=== PATIENT | male | born 1945 | race Caucasian/White ===

== ENCOUNTER 2018-05-04 06:13 | Inpatient (IN) ==
--- NOTE | 2018-05-03 16:38 | Anesthesia Evaluation PreOp ---
Date of Encounter: 05/04/18 Time of Encounter: 07:08 - Past History Planned Operation: left femoral to anterior tibial BPG Cardiac History: HTN, Hyperlipidemia, Cardiac Stent (5-18 to RCA), Other (CAD and PAD) Pulmonary History: Former smoker (quit 1982) [employer] TRA[employer] CONSULTANT History: Denies Any Significant HX Other Medical History: Diabetes Type II Anesthesia History: No Prior Anesthetic Complications, Past Anesthesia (ACDF C5- 6, charles, appy, back sx, angioplasty to LLE) Alcohol Use: none Drug use: none Medications and Allergies hydroCHLOROthiazide [Hydrochlorothiazide] 25 mg PO DAILY 01/23/16 [History] Atenolol [Tenormin] 50 mg PO DAILY 03/19/18 [History] Clopidogrel [Plavix] 75 mg PO DAILY 03/19/18 [History] Insulin Degludec [Tresiba Flextouch U-200] 110 unit SQ HS 03/19/18 [History] Atorvastatin Calcium [Lipitor] 20 mg PO DAILY 03/31/18 [History] Aspirin 325 mg PO DAILY 05/04/18 [History] Losartan Potassium [Cozaar] 100 mg PO DAILY 05/04/18 [History] 3 Allergy/AdvReac Type Severity Reaction Status Date / Time No Known Allergies Allergy Verified 05/04/18 06:59 - Meds/Allergy Pre-op Review Medications Reviewed: Yes Allergies Reviewed: Yes Beta Blockers on Current Med List: Yes If Beta Blockers taken, Date/Time (Last Dose taken): 6-25 AT 1000. Anesthesia Results - Labs Laboratory Tests 04/30/18 04/30/18 13:48 13:48 Hgb 13.8 Plt Count 198 Sodium 138 Potassium 4.6 BUN 25 H Creatinine 1.46 H - Imaging EKG: report reviewed (SINUS BRADYCARDIA) Additional studies: cath: mpressions: There is severe diabetic small vessel coronary disease The left ventricle is normal and has normal contractility EF 65% Severe RCA stenosis corresponding to abnormal stress test and Patient had successful PTCA/Drug-Eluting Stent placement in the mid RCA. stress test: Impression: Pharmacologic stress ECG is negative for ischemia at level of heart rate achieved. Gated EF = 62%. Small sized, mild intensity, reversible basal inferior perfusion defect possibly due to ischemia. Anesthesia Exam Selected Entries 05/04/18 06:36 Temperature 97.8 F Pulse Rate 51 Respiratory Rate 18 Blood Pressure 170/63 O2 Sat by Pulse Oximetry 99 Height: 1.7m Weight: 81kg NPO (# of Hours): 8 - HEENT Pupil (Motor): EOMI Mallampati: II Teeth: Poor dentition Oral Opening: Greater than 3 - [employer] TRAFF[employer] CONSULTANT LOC: Oriented [employer] TRA[employer] CONSULTANT Motor: Normal RUE, Normal LUE, Normal RLE, Normal LLE, Normal Face [employer] TRA[employer] CONSULTANT Sensory: Normal: RUE, LUE, RLE, LLE, Face - Cardiac Rhythm: Regular Murmur: None - Pulmonary Breath Sounds: bilateral Clear Respiratory Effort: Symmetrical Anesthesia Assess/Plan ASA Score: 4 Modified Pratt Scale for Level of Consciousness: Cooperative, oriented, and tranquil Anesthetic Plan: General Monitoring Plan: Standard Monitors, A-Line, CVC Recovery Plan: PACU (agrees to GA, a-line and CVC as well as blood products. Will hold beta blockers this morning due to bradycardia)
[2018-05-04] MEDS ORDERED: CeFAZolin Syr 2,000MG/20 ML 2,000 MG/20 ML SYRINGE IVPB ONE (06:59)
[2018-05-04] MEDS ORDERED: Heparin 1,000 UNITS/500 mL 500 ML ONE (07:05)
[2018-05-04] MEDS ORDERED: Lidocaine -MPF 4% 5 ML AMPUL ONE (07:07)
[2018-05-04] MEDS ORDERED: *HR* Rocuronium Bromide 50 MG/5 ML VIAL ONE ×4 (07:13→13:44)
[2018-05-04] MEDS ORDERED: *HR* Phenylephrine 10 MG/ML VIAL ONE ×3 (07:13→13:42)
[2018-05-04] MEDS ORDERED: Dexamethasone 4 MG/ML VIAL ONE (07:13)
[2018-05-04] MEDS ORDERED: Lidocaine -MPF 2% 2 ML VIAL ONE ×2 (07:13→07:24)
[2018-05-04] MEDS ORDERED: Ondansetron 4 MG/2 ML VIAL ONE (07:13)
[2018-05-04] MEDS ORDERED: *HR* Propofol 200 MG/20 ML VIAL IVP ONE (07:19)
[2018-05-04] MEDS ORDERED: Heparin 1,000 UNITS/500 mL 1,500 ML ONE (07:19)
[2018-05-04] MEDS ORDERED: *HR* FentaNYL (PF) 100 MCG/2 ML VIAL ONE ×2 (07:30→15:26)
[2018-05-04] MEDS ORDERED: *HR* Succinylcholine 200 MG/10 ML VIAL IVP ONE (07:31)
[2018-05-04] MEDS: Ringers Solution, Lactated 1,000 ML IVC SCH ×2 (07:46→11:45)
--- NOTE | 2018-05-04 07:46 | History & Physical Report ---
Date of Encounter: 05/04/18 Time of Encounter: 07:25 24 Hour HP Update - Instructions Instructions: If the History and Physical is less than 30 days old and was completed prior to A.M. admission and or procedure and has NOT been updated on calendar day of procedure please complete this update prior to performing procedure. - Update Patient reports changes in Medical Condition: No Changes in examination, assessment, or condition: No Changes in Medication: No Preop tests/diagnostics Reviewed: Yes Surgery Remains Indicated: Yes Consent for Planned Operative Procedure(s) Verified: Yes - Pre-Operative Checklist Preoperative Checklist Indicated: Yes Prophylactic Antibiotic Ordered: Yes Home Medications Include Beta Ema: Yes Beta Ema Taken Today (Day of Surgery): Yes Beta Ema Taken Yesterday (Day Prior to Surgery): Yes Is VTE Prophylaxis Indicated?: Yes
[2018-05-04] MEDS ORDERED: ceFAZolin 1,000 MG, Sodium Chloride IRRigation 1,000 ML IR ONE (08:00)
[2018-05-04] MEDS ORDERED: *HR* Midazolam HCl 2 MG/2 ML VIAL ONE (08:07)
[2018-05-04] MEDS ORDERED: Acetaminophen IV 1,000 MG/100 ML INFUS..BTL ONE (08:16)
[2018-05-04 09:29] LABS: ABG Base Excess 1 mEq/L (-2 to 3); ABG Chloride 106 mEq/L (98-107); ABG Glucose 73 mg/dL (60-95); ABG HCO3 25 mEq/L (21-27); ABG Ionized Calcium 1.16 mmol/L (1.15-1.35); ABG Oxygen Saturation 100 % (95-98); ABG PCO2 38 mmHg (35-45); ABG PH 7.43 pH Units (7.32-7.45); ABG PO2 304 mmHg (85-104); ABG TCO2 26 mEq/L (20-26)
[2018-05-04] MEDS ORDERED: *HR* Heparin 5,000 UNIT/ML VIAL ONE ×2 (09:31→11:42)
[2018-05-04 11:06] LABS: ABG Base Excess 1 mEq/L (-2 to 3); ABG Chloride 108 mEq/L (98-107); ABG Glucose 92 mg/dL (60-95); ABG HCO3 25 mEq/L (21-27); ABG Ionized Calcium 1.15 mmol/L (1.15-1.35); ABG Oxygen Saturation 100 % (95-98); ABG PCO2 40 mmHg (35-45); ABG PH 7.41 pH Units (7.32-7.45); ABG PO2 305 mmHg (85-104); ABG TCO2 27 mEq/L (20-26)
[2018-05-04] MEDS ORDERED: Neostigmine Methylsulfate 3 MG/3 ML SYRINGE ONE (12:36)
[2018-05-04] MEDS ORDERED: Albumin Human 5% 25.0 GM/500 ML VIAL ONE ×2 (13:15→13:47)
[2018-05-04 13:18] LABS: ABG Base Excess -1 mEq/L (-2 to 3); ABG Chloride 105 mEq/L (98-107); ABG Glucose 112 mg/dL (60-95); ABG HCO3 23 mEq/L (21-27); ABG Ionized Calcium 1.18 mmol/L (1.15-1.35); ABG Oxygen Saturation 100 % (95-98); ABG PCO2 34 mmHg (35-45); ABG PH 7.44 pH Units (7.32-7.45); ABG PO2 233 mmHg (85-104); ABG TCO2 24 mEq/L (20-26)
[2018-05-04] MEDS ORDERED: MORPHINE SUL Oral CONC 10 MG/0.5 ML ORAL.SYG SL PRN (13:23)
[2018-05-04] MEDS ORDERED: Ondansetron 4 MG/2 ML VIAL IVP ONE (13:23)
[2018-05-04] MEDS ORDERED: EPHEDrine 50 MG/ML VIAL ONE (13:28)
[2018-05-04] MEDS ORDERED: *HR* PHENYLEPHRINE 1,000 MCG/10 ML SYRINGE IVP ONE (13:34)
[2018-05-04] MEDS ORDERED: *HR* Vasopressin 20 UNIT/ML VIAL ONE (13:36)
--- NOTE | 2018-05-04 13:51 | Anesthesia Procedures ---
Date of Encounter: 05/04/18 Time of Encounter: 08:15 Procedures: Anesthesia - Arterial Line Consent obtained: written consent Time out performed: Yes Size (Gauge): 20 Length (inches): 1 3/4 Technique Used: sterile prep, guide wire technique, direct puncture technique Post-Procedure: line taped into place, dry sterile dressing placed Patient tolerated procedure: well, no complications Complications: none Site: Radial L (placed by Ruperto Nickerson CRNA) - Central Line Placement Right IJ Consent obtained: written consent Patient placed on monitor/pulse ox: Yes MD prep: mask, gown, gloves Central line prep: Chlorhexidine scrub Ultrasound used for placement: Yes Technique: Seldinger Lumen Inserted: triple Size / Length: 7 Fr / 16 cm Post procedure: sutured in place, good blood return, all ports aspirated, flushed, capped, sterile dressing applied Patient tolerated procedure: well Complications: none Comments: CVC placed for access and for vasopressor drip infusion. Placed easily, no arrythmias. Sutured in place. Small bleed around catheter site. Fibrilar placed and dressing placed.
--- NOTE | 2018-05-04 13:55 | Anesthesia Progress Note ---
Date of Encounter: 05/04/18 Time of Encounter: 13:50 Anesthesia Note - Note Note: 05/04/18 13:51 Patient with hypotension despite phenylephrine drip, fluids and albumin. Hemoglobin has decreased from 13.8 to 9. We will administer 2 units of PRBCs because of drop in BP and HGB as well as fact patient has significant CAD per cath report. I believe he will benefit greatly from the PRBCs.
[2018-05-04] MEDS ORDERED: Norepinephrine 4 MG in D5% in Water 250 ML IVC SCH (14:00)
[2018-05-04 14:01] LABS: ABG Base Excess -3 mEq/L (-2 to 3); ABG Chloride 109 mEq/L (98-107); ABG Glucose 188 mg/dL (60-95); ABG HCO3 22 mEq/L (21-27); ABG Ionized Calcium 1.11 mmol/L (1.15-1.35); ABG Oxygen Saturation 100 % (95-98); ABG PCO2 38 mmHg (35-45); ABG PH 7.37 pH Units (7.32-7.45); ABG PO2 197 mmHg (85-104); ABG TCO2 24 mEq/L (20-26)
[2018-05-04 15:21] LABS: ABG Base Excess -2 mEq/L (-2 to 3); ABG Chloride 106 mEq/L (98-107); ABG Glucose 147 mg/dL (60-95); ABG HCO3 23 mEq/L (21-27); ABG Ionized Calcium 1.09 mmol/L (1.15-1.35); ABG Oxygen Saturation 100 % (95-98); ABG PCO2 37 mmHg (35-45); ABG PO2 211 mmHg (85-104); ABG TCO2 24 mEq/L (20-26)
--- NOTE | 2018-05-04 15:49 | Operative Note ---
Date of procedure: 05/04/18 Pre-op diagnosis: limb threatening ischemia left lower extremity Post-op diagnosis: same Procedure: left femoral-anterior tibial in situ saphenous vein bypass graft Complications: none Anesthesia: GETA Surgeon: Robert Moore Was there an recruitment and outreach assistant present: No Estimated blood loss (cc): 700 Specimen: none Condition: stable Disposition: ICU Procedure in Detail: History Elijah Barroso is a 72-year-old white male who was seen originally in the outpatient clinic because of ischemia that was recurrent in the left lower extremity. He had undergone previous endovascular intervention for the left anterior tibial artery at [facility]. This had gone on to re-thrombose. Because of the severity of his symptoms the patient presented with limb threatening ischemia. As part of his workup he underwent cardiac stress testing. This was abnormal. This led to a coronary stent. He then was delayed to have surgery for about 1 month needed to continue on dual antiplatelet therapy. He now comes to the operating room for the left lower extremity revascularization. Procedure After informed consent was obtained the patient was taken to the operating room. General endotracheal anesthesia was established. An arterial line was placed. Central line was placed. The left lower extremity was then sterilely prepped and draped. A timeout protocol was observed. The dissection began at the level of the left groin. The greater saphenous vein was identified. It was then dissected for the length of the thigh and the midcalf. The vein was found to be patent but relatively small in size and in areas very superficial. As a result of this venous anatomy the operation was complicated by very delicate and tedious dissection in order to appropriately evaluate and free up the anterior surface of the greater saphenous vein and to control tributaries. As the distal endpoint for this bypass graft was in the mid anterior tibial artery the use of a synthetic graft was unacceptable. Therefore we persisted in our dissection and perform this bypass using an in situ saphenous vein technique. A tunnel was then created from the medial aspect of the calf to the lateral aspect of the calf in order to allow the vein bypass graft to be passed to the anterior tibial artery. With this done heparin was administered intravenously. The proximal anastomosis was then fashioned after after the vein was divided off the fossa ovalis. The proximal stump was oversewn with 6-0 Prolene. The distal common femoral and proximal superficial femoral artery was then opened with 11 blade knife. An end of vein to side of artery anastomosis was performed using 6-0 Prolene suture. After this was done the clamps are removed and pulsatile flow was restored through the femoral system. Competent vein valves were then noticed as expected along the course of the greater saphenous vein. Using side branches a modified Narayan valvulotome was inserted and the proximal half of the vein had the vein valves lysed through this technique. After this was done the vein was divided distally at the distal calf. It was flushed with heparinized saline. A 2.0 and 2.5 mm LeMaitre valvulotomes were then inserted and the vein was lysed for its entire length and pulsatile flow was achieved through the graft. Heparinized saline was then back flushed and the vein was clamped. The vein was then tunneled from the medial aspect of the calf through the previously created tunnel through the interosseous membrane to the anterior compartment. Here the end of vein to side of artery anastomosis was created. The anterior tibial artery was small in size. 7-0 Prolene suture was used for this anastomosis. As anticipated this was very tedious of anastomosis as was the dealing with the small diameter greater saphenous vein. After appropriate backbleeding and flushing the graft was opened and pulsatile flow was then restored into the left anterior tibial artery. Biphasic Doppler signals were identified at the dorsalis pedis artery at the ankle. The wound was then irrigated. Hemostasis was achieved. At this point should be noted that due to the patient's dual antiplatelet therapy for the coronary stent he had significant oozing throughout the entire case. This required a transfusion of 2 units of packed red blood cells during the operation. The wounds were then closed in layers. [place] were used to close the skin edges. The patient was extubated in the operating room. He was transported from the operating room to the intensive care unit in stable condition. He was not on any hemodynamically active drips. The sponge count and needle counts were correct.
[2018-05-04] MEDS ORDERED: Aspirin 81 MG TAB.CHEW PO SCH (16:13)
--- NOTE | 2018-05-04 16:15 | Pulmonology Consult Note ---
<CorrineRodrigo - Last Filed: 05/04/18 16:50> Date of Encounter: 05/04/18 Time of Encounter: 16:00 Assessment and Plan (1) Acute respiratory failure Current Visit: Yes Status: Acute Patient is status post-op from LE vascular surgery due to arterial occlusion. He has diminshed breath sounds on exam. No crackles. O2 sat of 100% at 6 L oxymask. Patient suffered acute respiratory failure likely secondary to post-op atelectasis. - Transition to nasal cannula. - CXR. - Will continue to monitor. Qualifiers: Respiratory failure complication: unspecified whether with hypoxia or hypercapnia Qualified Code(s): J96.00 - Acute respiratory failure, unspecified whether with hypoxia or hypercapnia (2) Anemia Current Visit: Yes Status: Acute Patient transfused with 2 U of PRBCs in the OR. Current hemoglobin level at 8. Secondary to acute blood loss post-surgical. MAP 55. BP at 92/32. - Trend H/H. - Transfuse as needed if hgb < 8. Qualifiers: Anemia type: other cause Other causes of anemia: other cause, not classified Qualified Code(s): D64.89 - Other specified anemias (3) Hypotension Current Visit: Yes Status: Acute BP 92/32. MAP 55. Secondary to acute blood loss. Patient was given 2 U of PRBCs in the OR. Given 3.7 L of crystalloid fluid and 1 L albumin in the OR. - 1 L bolus of NS fluid. - If MAP continues to be < 60 or patient's BP does not improve, proceed to give 1 U PRBCs next. If patient's BP and MAP still does not improve, proceed to place patient on Levophed. Qualifiers: Qualified Code(s): I95.89 - Other hypotension; E86.1 - Hypovolemia (4) Presence of stent in coronary artery in patient with coronary artery disease Current Visit: Yes Status: Acute S/P RAMÓN stent in RCA on 03/2018. - ASA - plavix. (5) Diabetes mellitus, type II, insulin dependent Current Visit: Yes Status: Acute Glucose 147. - Low-dose insulin sliding scale. (6) DVT prophylaxis Current Visit: Yes Status: Acute EPCD, foot pumps. History of Present Illness Consult date: 05/04/18 Requesting physician: Robert Moore Reason for consult: dyspnea Chief complaint: SOB History of present illness: Patient is a 72 YO male with PAD, DM II (on insulin), HTN, previous BUFFET SERVER, CAD with RAMÓN in 03/26 in the RCA that presented today for LLE vascular surgery. Peripheral angiogram on 03/19/18 revealed re-occlusion of the The Left Tibioperoneal Trunk, Left Ant. Tibial, Left Peroneal, and Left Post.Tibial artery with 100% stenosis. Patient underwent a left femoral-anterior tibial in situ saphenous vein bypass graft. Patient was brought into the ICU due to hypotension and actue respiratory failure s/p post-op. When seen today, patient denies any chest pain or shortness of breath. He denies any nausea or vomiting. Denies any fever or chills. Denies any abdominal pain. Denies any calf tenderness. Denies any TALAMANTES, dizziness, or light-headedness. Past Med Surg Social Fam HX - Past Medical History Medical history: diabetes, hyperlipidemia, hypertension, peripheral artery disease Psychiatric history: no psych history - Past Surgical History Surgical History: appendectomy, cholecystectomy Additional surgical history: BACK SURGERY, ANGIOGRAM OF BLE 01-23-16, LEFT POPLITEAL AND ANTERIOR TIBIAL ARTERY ATHERECTOMY AND BALLOON ANGIOPLASTIES - Social History Smoking Status: Former smoker Smokeless Tobacco Status: Yes (chews BID) Alcohol use: none Drug use: none - Family History Mother Living Status: Father Living Status: Hx Family Cancer: Yes Medications and Allergies hydroCHLOROthiazide [Hydrochlorothiazide] 25 mg PO DAILY 01/23/16 [History] Atenolol [Tenormin] 50 mg PO DAILY 03/19/18 [History] Clopidogrel [Plavix] 75 mg PO DAILY 03/19/18 [History] Insulin Degludec [Tresiba Flextouch U-200] 110 unit SQ HS 03/19/18 [History] Atorvastatin Calcium [Lipitor] 20 mg PO DAILY 03/31/18 [History] Aspirin 325 mg PO DAILY 05/04/18 [History] Losartan Potassium [Cozaar] 100 mg PO DAILY 05/04/18 [History] 3 Allergy/AdvReac Type Severity Reaction Status Date / Time No Known Allergies Allergy Verified 05/04/18 06:59 All Systems: The remainder of the systems were reviewed and are negative - Constitutional Constitutional: no chills, no fever(s), no headache(s) - EENT Nose, mouth and throat: no dizziness, no headache(s) - Cardiovascular Cardiovascular: no chest pain, no dyspnea, no lightheadedness - Respiratory Respiratory: no dyspnea - Gastrointestinal Gastrointestinal: no abdominal pain, no nausea, no vomiting - Psychiatric Psychiatric: as per HPI - Endocrine Endocrine: as per HPI - Hematologic/Lymphatic Hematologic/Lymphatic: as per HPI - Allergic/Immunologic Allergic/Immunologic: as per HPI Physical Examination General appearance: no acute distress Eyes: nonicteric ENT: oropharynx moist Neck: supple Effort: normal Inspection: normal Auscultation: bilateral: clear, diminished breath sounds (At bases ) Percussion: bilateral: not dull Tactile fremitus: bilateral: normal Cardiovascular: regular rate and rhythm Gastrointestinal: hypoactive bowel sounds, non-distended Integumentary: normal Extremities: no cyanosis, no edema, no clubbing, pulses normal, no ischemia or petechiae, other (Surgical incisinos on RLE bandaged with monior signs of bleeding on bandages. No calf-tenderness upon palpation. ) Musculoskeletal: no deformities normal mental status Results - Laboratory Findings ABG ABG pH 7.40 pH Units (7.32-7.45) 05/04/18 15:17 ABG pCO2 37 mmHg (35-45) 05/04/18 15:17 ABG pO2 211 mmHg (85-104) H 05/04/18 15:17 ABG O2 Saturation 100 % (95-98) H 05/04/18 15:17 Abnormal lab findings: Abnormal lab results ABG pO2 211 mmHg (85-104) H 05/04/18 15:17 ABG O2 Saturation 100 % (95-98) H 05/04/18 15:17 ABG Hematocrit 23.0 % (37.5-50.1) L 05/04/18 15:17 Glucose 147 mg/dL (60-95) H 05/04/18 15:17 Arterial Blood Ionized Calcium 1.09 mmol/L (1.15-1.35) L 05/04/18 15:17 - Clinical Findings Intake & Output: Intake & Output 05/04/18 05/04/18 05/04/18 07:59 15:59 23:59 Intake Total 1000 / 1000 Balance 1000 / 1000 Weight 80.739 kg Consult Discharge Plan - Plan Referrals: Ruperto Hdez MD [Primary Care Provider] - 05/06/18 2:30 pm () Robert Moore MD [Partnered Physician] - 05/19/18 2:45 pm <Emmanuel Huang - Last Filed: 05/04/18 22:27> Date of Encounter: 05/04/18 All Systems: The remainder of the systems were reviewed and are negative Physical Examination Vital Signs: Vital Signs, Last 4 Hours Temp Pulse Resp BP Pulse Ox 05/04/18 21:00 65 14 136/41 99 05/04/18 20:30 69 14 135/38 100 05/04/18 20:00 97.9 F 63 12 153/41 100 05/04/18 19:22 67 12 132/37 100 05/04/18 19:00 63 12 149/41 100 05/04/18 18:35 97.2 F L 61 12 124/38 100 Results - Laboratory Findings CBC and BMP: 05/04/18 16:26 05/04/18 17:20 ABG ABG pH 7.40 pH Units (7.32-7.45) 05/04/18 15:17 ABG pCO2 37 mmHg (35-45) 05/04/18 15:17 ABG pO2 211 mmHg (85-104) H 05/04/18 15:17 ABG O2 Saturation 100 % (95-98) H 05/04/18 15:17 PT/INR, D-dimer PT 15.7 Seconds (9.4-12.1) H 05/04/18 17:20 Abnormal lab findings: Abnormal lab results RBC 2.54 M/mcL (4.19-5.50) L 05/04/18 16:26 Hgb 8.0 g/dL (12.9-16.9) L D 05/04/18 16:26 Hct 22.4 % (37.5-50.1) L 05/04/18 16:26 MCHC 35.7 g/dL (31.6-35.5) H 05/04/18 16:26 Plt Count 99 K/mcL (140-400) L 05/04/18 16:26 Neutrophils # 9.3 K/mcL (1.6-8.9) H 05/04/18 16:26 Platelet Estimate Slight Decrease (Normal) L 05/04/18 16:26 Immature Plt Fraction 6.5 % (1.1-6.1) H 05/04/18 16:26 PT 15.7 Seconds (9.4-12.1) H 05/04/18 17:20 ABG pO2 211 mmHg (85-104) H 05/04/18 15:17 ABG O2 Saturation 100 % (95-98) H 05/04/18 15:17 ABG Hematocrit 23.0 % (37.5-50.1) L 05/04/18 15:17 Glucose 147 mg/dL (60-95) H 05/04/18 15:17 Chloride 113 mEq/L (98-107) H 05/04/18 17:20 Glucose 160 mg/dL (70-105) H 05/04/18 17:20 POC Glucose 191 mg/dL (70-99) H 05/04/18 16:11 Calcium 7.0 mg/dL (8.6-10.3) L 05/04/18 17:20 Arterial Blood Ionized Calcium 1.09 mmol/L (1.15-1.35) L 05/04/18 15:17 - Clinical Findings Intake & Output: Intake & Output 05/04/18 05/04/18 05/04/18 07:59 15:59 23:59 Intake Total 1000 / 1000 1100 / 1100 Output Total 2620 / 2620 Balance 1000 / 1000 -1520 / -1520 Weight 80.739 kg 86.2 kg - Attending Attestation I saw and evaluated this patient and my medical decision-making was reviewed with the Resident Physician. I agree with the documented findings, disposition and treatment plan as described except to the extent set forth below. We independently had [id number] contact with the patient I spent 32 minutes of Critical Care time with this patient. It involved decision making of high complexity to assess, manipulate, and support vital organ system failure and/or to prevent further life threatening deterioration of the patient's condition. The time involved in the performance of separately reportable procedures was not counted toward critical care time. Patient seen and examined at bedside Labs, radiology, chart personally reviewed. Management was reviewed during multidisciplinary critical care rounds. BOAT HOP: Patient is conscious oriented following commands Pulm: Patient has acceptable oxygenation and ventilation the current hypoxic respiratory post operative atelectasis will improve patient will be able to come off the ventilator Cards: Patient Hypotension post anaesthetic effect and volume depletion patient responded to volume resuscitation.. Patient recent PA with stent in RCA to continue Aspirin and Plavix high risk for postoperative PA FEN-GI:NPO for now Diet according to surgery Renal: Labs and output reviewed ID:No active issues Heme/Onc: Patient had post surgical bleeding . Will do mechanical thromboprophylaxis Endo: Glucose Monitored Integ/MSK: Skin Care per routine ICU Nursing Protocol to prevent ulcers. Lines: All lines examined without evidence of infection : Dispo: To remain in ICU CODE: Full Code
[2018-05-04] MEDS ORDERED: 0.9 % Sodium Chloride 1,000 ML IVC ONE ×2 (16:31→16:37)
[2018-05-04] MEDS ORDERED: 0.9 % Sodium Chloride 1,000 ML ONE (16:32)
[2018-05-04] MEDS ORDERED: Acetaminophen 325 MG TABLET PO PRN (16:37)
[2018-05-04] MEDS ORDERED: *HR* Labetalol 20 MG/4 ML SYRINGE IVP PRN (16:37)
[2018-05-04] MEDS ORDERED: Naloxone 0.4 MG/ML INJ IVP PRN (16:37)
[2018-05-04] MEDS ORDERED: Ondansetron 4 MG/2 ML VIAL IVP PRN (16:37)
[2018-05-04 16:48] LABS: Basophils % 0.1 %
[2018-05-04 16:50] LABS: Eosinophils % 0.2 %; Hematocrit 22.4 % (37.5-50.1); Immature Granulocytes % 0.5 % (0-4); Immature Platelets 6.5 % (1.1-6.1); Lymphocytes # 1.1 K/mcL (0.6-4.6); Lymphocytes % 9.5 %; Mean Corpuscular HGB Conc 35.7 g/dL (31.6-35.5); Mean Corpuscular Hemoglobin 31.5 pg (28.0-33.3); Mean Corpuscular Volume 88.2 fL (83.0-100.0); Mean Platelet Volume 11.2 fL (9.4-12.4); Monocytes # 0.6 K/mcL (0.0-1.3); Monocytes % 5.3 %; Neutrophils # 9.3 K/mcL (1.6-8.9); Red Blood Count 2.54 M/mcL (4.19-5.50); Red Cell Distribution Width 12.5 % (11.5-14.5); Segmented Neutrophils % 84.4 %
[2018-05-04 16:52] LABS: Platelet Count 99 K/mcL (140-400)
[2018-05-04 16:56] LABS: Platelet Estimate Slight Decrease (Normal)
[2018-05-04] MEDS ORDERED: Dextrose Gel 15 GM/37.5 ML TUBE PO PRN ×2 (17:16)
[2018-05-04] MEDS ORDERED: D5% in Water 1,000 ML IVC PRN (17:16)
[2018-05-04] MEDS ORDERED: *HR* Dextrose 50 % in Water (Syg) 50 ML SYRINGE IVP PRN (17:16)
[2018-05-04] MEDS: Pantoprazole 40 MG VIAL IVP SCH (17:37)
[2018-05-04] MEDS: Insulin LISPRO 300 UNITS/3 ML VIAL SQ SCH (17:37)
[2018-05-04 17:55] LABS: INR 1.4; Prothrombin Time 15.7 Seconds (9.4-12.1)
[2018-05-04 17:58] LABS: Activated Partial Thrombo Time 26.1 Seconds (26.0-36.0)
[2018-05-04] MEDS ORDERED: Pantoprazole 40 MG VIAL IVP SCH (18:00)
[2018-05-04 18:05] LABS: BUN/Creatinine Ratio 22 (6-26); Blood Urea Nitrogen 23 mg/dL (8-23); Carbon Dioxide 23 mEq/L (23-29); Chloride 113 mEq/L (98-107); Glucose 160 mg/dL (70-105); Osmolality,Calculated 297 (280-300); Potassium 3.9 mEq/L (3.5-5.1); Sodium 140 mEq/L (136-145); eGFR For African Americans > 60 (> 60); eGFR For Non-African Americans > 60 (> 60)
[2018-05-04] MEDS: *HR* HYDROcodone/Acet 5/325 mg TABLET PO PRN (19:58)
[2018-05-04] MEDS: *HR* OxyCODONE Immed Rel 5 MG TABLET PO PRN (22:27)
[2018-05-04 22:46] LABS: Hematocrit 23.7 % (37.5-50.1); Hemoglobin 8.4 g/dL (12.9-16.9)
[2018-05-04] MEDS ORDERED: traZODone 50 MG TABLET PO PRN (23:45)
[2018-05-05] MEDS: Insulin LISPRO 300 UNITS/3 ML VIAL SQ SCH ×4 (00:04→18:38)
[2018-05-05] MEDS: *HR* HYDROcodone/Acet 5/325 mg TABLET PO PRN ×3 (02:25→18:10)
[2018-05-05 03:48] LABS: Basophils % 0.2 %; Eosinophils % 0.1 %; Hematocrit 21.5 % (37.5-50.1); Hemoglobin 7.5 g/dL (12.9-16.9); Immature Granulocytes % 0.4 % (0-4); Lymphocytes # 1.9 K/mcL (0.6-4.6); Lymphocytes % 15.5 %; Mean Corpuscular HGB Conc 34.9 g/dL (31.6-35.5); Mean Corpuscular Hemoglobin 30.7 pg (28.0-33.3); Mean Corpuscular Volume 88.1 fL (83.0-100.0); Mean Platelet Volume 11.3 fL (9.4-12.4); Monocytes # 1.3 K/mcL (0.0-1.3); Monocytes % 10.4 %; Neutrophils # 9.2 K/mcL (1.6-8.9); Platelet Count 101 K/mcL (140-400); Red Blood Count 2.44 M/mcL (4.19-5.50); Segmented Neutrophils % 73.4 %
[2018-05-05 04:03] LABS: BUN/Creatinine Ratio 21 (6-26); Blood Urea Nitrogen 24 mg/dL (8-23); Calcium 7.5 mg/dL (8.6-10.3); Carbon Dioxide 24 mEq/L (23-29); Chloride 110 mEq/L (98-107); Glucose 130 mg/dL (70-105); Osmolality,Calculated 294 (280-300); Potassium 4.2 mEq/L (3.5-5.1); Sodium 139 mEq/L (136-145); eGFR For African Americans > 60 (> 60); eGFR For Non-African Americans > 60 (> 60)
[2018-05-05] MEDS: Pantoprazole 40 MG VIAL IVP SCH ×2 (06:05→18:11)
[2018-05-05] MEDS: *HR* OxyCODONE Immed Rel 5 MG TABLET PO PRN ×3 (07:17→20:02)
[2018-05-05] MEDS ORDERED: Aspirin 325 MG TABLET PO SCH (09:00)
[2018-05-05] MEDS ORDERED: Aspirin 81 MG TAB.CHEW PO SCH (09:00)
[2018-05-05] MEDS ORDERED: hydroCHLOROthiazide 25 MG TABLET PO SCH (09:00)
--- NOTE | 2018-05-05 09:12 | Pulmonology Progress Note ---
Date of Encounter: 05/05/18 Time of Encounter: 09:10 Assessment and Plan (1) Acute respiratory failure Current Visit: Yes Status: Acute Most likely post operative atelectasis and rapid fluid shift post surgery now he is off O2 Qualifiers: Respiratory failure complication: hypoxia Qualified Code(s): J96.01 - Acute respiratory failure with hypoxia (2) Hypotension Current Visit: Yes Status: Acute Patient had acute blood loss anemia the initial hypotension most likely due to volume depletion . Patient responded to fluid resuscitation . Hypotension resolved . Qualifiers: Hypotension type: postprocedural hypotension Qualified Code(s): I95.81 - Postprocedural hypotension (3) Presence of stent in coronary artery in patient with coronary artery disease Current Visit: Yes Status: Chronic To continue Aspirin and Plavix , will continue Losartan . Patient doesnt have active symptoms of Acute Coronary Syndrome (4) Diabetes mellitus, type II, insulin dependent Current Visit: Yes Status: Chronic To continue sliding scale if the blood sugars goes up will need long acting insulin (5) DVT prophylaxis Current Visit: Yes Status: Acute To continue foot pumps . No chemical thromboprophylaxis because of bleeding once surgery clear chemical prophylaxis will start on Heparin. Subjective Principal diagnosis: Acute Blood loss anemia Interval history: 72 year old with past medical history significant for recent NE S/p RCA stent on dual antiplatelet therapy went for fem-pop bypass surgery complicated by bleeding admitted to ICU for overnight monitoring . Objective PUL Vital signs: Last Vital Signs Temp 98.3 F 05/05/18 07:41 Pulse 70 05/05/18 06:00 Resp 18 05/05/18 06:00 BP 90/43 05/05/18 06:00 Pulse Ox 98 05/05/18 06:00 Auscultation: bilateral: clear Extremities: other (Surgical dressing no significant hematoma noticed ) Results - Laboratory Findings CBC and BMP: 05/05/18 03:30 05/05/18 03:30 ABG ABG pH 7.40 pH Units (7.32-7.45) 05/04/18 15:17 ABG pCO2 37 mmHg (35-45) 05/04/18 15:17 ABG pO2 211 mmHg (85-104) H 05/04/18 15:17 ABG O2 Saturation 100 % (95-98) H 05/04/18 15:17 PT/INR, D-dimer PT 15.7 Seconds (9.4-12.1) H 05/04/18 17:20 Abnormal lab findings: Abnormal lab results WBC 12.5 K/mcL (4.3-11.1) H 05/05/18 03:30 RBC 2.44 M/mcL (4.19-5.50) L 05/05/18 03:30 Hgb 7.5 g/dL (12.9-16.9) L 05/05/18 03:30 Hct 21.5 % (37.5-50.1) L 05/05/18 03:30 Plt Count 101 K/mcL (140-400) L 05/05/18 03:30 Neutrophils # 9.2 K/mcL (1.6-8.9) H 05/05/18 03:30 Platelet Estimate Slight Decrease (Normal) L 05/04/18 16:26 Immature Plt Fraction 6.5 % (1.1-6.1) H 05/04/18 16:26 PT 15.7 Seconds (9.4-12.1) H 05/04/18 17:20 ABG pO2 211 mmHg (85-104) H 05/04/18 15:17 ABG O2 Saturation 100 % (95-98) H 05/04/18 15:17 ABG Hematocrit 23.0 % (37.5-50.1) L 05/04/18 15:17 Glucose 147 mg/dL (60-95) H 05/04/18 15:17 Chloride 110 mEq/L (98-107) H 05/05/18 03:30 BUN 24 mg/dL (8-23) H 05/05/18 03:30 Glucose 130 mg/dL (70-105) H 05/05/18 03:30 POC Glucose 150 mg/dL (70-99) H 05/04/18 23:57 Calcium 7.5 mg/dL (8.6-10.3) L 05/05/18 03:30 Arterial Blood Ionized Calcium 1.09 mmol/L (1.15-1.35) L 05/04/18 15:17 - Clinical Findings Intake & Output: Intake & Output 05/04/18 05/05/18 05/05/18 23:59 07:59 15:59 Intake Total 1100 / 1100 100 / 100 600 / 600 Output Total 2620 / 2620 420 / 420 Balance -1520 / -1520 -320 / -320 600 / 600 Weight 86.2 kg 87.3 kg Consult Discharge Plan - Plan Referrals: Ruperto Hdez MD [Primary Care Provider] - 05/06/18 2:30 pm () Robert Moore MD [Partnered Physician] - 05/19/18 2:45 pm
[2018-05-05] MEDS ORDERED: Ringers Solution, Lactated 1,000 ML IVC SCH (09:15)
--- NOTE | 2018-05-05 10:12 | Vascular/[facility] Progress Note ---
Date of Encounter: 05/05/18 Time of Encounter: 10:10 - Assessment and plan (1) PAD (peripheral artery disease) Current Visit: Yes Status: Chronic Patent left lower extremity femoral to anterior tibial bypass graft. Excellent perfusion to left foot. Resolution of left foot ischemia. We will liberalize physical activities today. Patient can be transferred to [address] [place] [address]. (2) Anemia Current Visit: Yes Status: Acute Patient has postop anemia. He had been given 2 units of blood intraoperatively. His hemoglobin is 7.5 this morning. In light of his vascular disease and coronary disease he will receive an additional unit of blood today. Qualifiers: Anemia type: other cause Other causes of anemia: other cause, not classified Qualified Code(s): D64.89 - Other specified anemias (3) Presence of stent in coronary artery in patient with coronary artery disease Current Visit: Yes Status: Acute Patient had abnormal stress test prior to surgery. This led to cardiac catheterization and placement of a drug-eluting stent. The patient has been placed and maintained on dual antiplatelet agents. This contributed to his excessive blood loss. (4) Diabetes mellitus, type II, insulin dependent Current Visit: Yes Status: Chronic Patient has chronic diabetes. - Subjective Interval history: Patient had an uneventful night. He had difficulty sleeping but otherwise has no significant issues. He notes pain along the surgical incision. The left foot however is feeling warmer. The pain he had experienced in the left foot prior to surgery is now gone. Vital Signs, Last 4 Hours Temp 05/05/18 07:41 98.3 F - Physical Examination General: Present: Conversant, No Apparent Distress HEENT: Present: Atraumatic Neck: Absent: JVD Cardiac: Present: Reg Rate and Rhythm, No Murmur Lungs: Present: Normal Breath Sounds Neuro: Present: Alert and responsive, No focal deficits noted, Cranial nerves grossly intact Vascular: Present: Normal capillary refill, Color/Temperature (Left foot is warm and pink), Surgical incisions (Patient has dry dressings over left lower extremity surgical incisions), Other (Patient has excellent Doppler signals 3 at the left ankle.) Abdomen: Present: Soft Skin: Present: No rashes noted on visualized skin Results 05/05/18 03:30 05/05/18 03:30 Lab Results, Last 24 hours 05/04/18 05/04/18 05/04/18 16:26 17:20 17:20 WBC 11.0 Hgb 8.0 L D Hct 22.4 L Plt Count 99 L INR 1.4 APTT 26.1 Sodium 140 Potassium 3.9 Chloride 113 H Carbon Dioxide 23 BUN 23 Creatinine 1.05 Glucose 160 H Calcium 7.0 L 05/04/18 05/05/18 05/05/18 22:15 03:30 03:30 WBC 12.5 H Hgb 8.4 L 7.5 L Hct 23.7 L 21.5 L Plt Count 101 L INR APTT Sodium 139 Potassium 4.2 Chloride 110 H Carbon Dioxide 24 BUN 24 H Creatinine 1.17 Glucose 130 H Calcium 7.5 L Consult Discharge Plan - Plan Referrals: Ruperto Hdez MD [Primary Care Provider] - 05/06/18 2:30 pm () Robert Moore MD [Partnered Physician] - 05/19/18 2:45 pm
[2018-05-05] MEDS ORDERED: 0.9 % Sodium Chloride 250 ML ONE (10:42)
[2018-05-05 16:51] LABS: Hematocrit 26.1 % (37.5-50.1)
[2018-05-05 16:56] LABS: Hemoglobin 9.2 g/dL (12.9-16.9)
[2018-05-05] MEDS ORDERED: Insulin LISPRO 300 UNITS/3 ML VIAL SQ SCH ×2 (18:45→21:00)
[2018-05-05] MEDS ORDERED: *HR* Dextrose 50 % in Water (Syg) 50 ML SYRINGE IVP PRN (19:46)
[2018-05-05] MEDS ORDERED: D5% in Water 1,000 ML IVC PRN (19:46)
[2018-05-05] MEDS ORDERED: traZODone 50 MG TABLET PO PRN (19:46)
[2018-05-05] MEDS ORDERED: *HR* Labetalol 20 MG/4 ML SYRINGE IVP PRN (19:46)
[2018-05-05] MEDS ORDERED: Naloxone 0.4 MG/ML INJ IVP PRN (19:46)
[2018-05-05] MEDS ORDERED: Acetaminophen 325 MG TABLET PO PRN (19:46)
[2018-05-05] MEDS ORDERED: Dextrose Gel 15 GM/37.5 ML TUBE PO PRN ×2 (19:46)
[2018-05-05] MEDS ORDERED: Ondansetron 4 MG/2 ML VIAL IVP PRN (19:46)
[2018-05-06] MEDS: *HR* HYDROcodone/Acet 5/325 mg TABLET PO PRN ×3 (00:15→13:13)
[2018-05-06] MEDS: *HR* OxyCODONE Immed Rel 5 MG TABLET PO PRN ×2 (02:05→20:45)
[2018-05-06] MEDS: Pantoprazole 40 MG VIAL IVP SCH ×2 (06:48→20:45)
[2018-05-06] MEDS: Aspirin 81 MG TAB.CHEW PO SCH (08:52)
--- NOTE | 2018-05-06 13:00 | Vascular/[facility] Progress Note ---
Date of Encounter: 05/06/18 Time of Encounter: 11:30 - Assessment and plan (1) PAD (peripheral artery disease) Current Visit: Yes Status: Chronic Patent left lower extremity femoral to anterior tibial bypass graft. Excellent perfusion to left foot. Resolution of left foot ischemia. Patient to be evaluated by physical therapy for ambulation. Tentative discharge either later today or tomorrow morning. (2) Anemia Current Visit: Yes Status: Acute Patient has postop anemia. He had been given 2 units of blood intraoperatively. His hemoglobin is 9.2 this morning. Qualifiers: Anemia type: other cause Other causes of anemia: other cause, not classified Qualified Code(s): D64.89 - Other specified anemias (3) Presence of stent in coronary artery in patient with coronary artery disease Current Visit: Yes Status: Chronic Patient had abnormal stress test prior to surgery. This led to cardiac catheterization and placement of a drug-eluting stent. The patient has been placed and maintained on dual antiplatelet agents. This contributed to his excessive blood loss. (4) Diabetes mellitus, type II, insulin dependent Current Visit: Yes Status: Chronic Patient has chronic diabetes. - Subjective Interval history: Patient had an uneventful night. He had difficulty sleeping but otherwise has no significant issues. He notes pain along the surgical incision. The left foot however is feeling warmer. The pain he had experienced in the left foot prior to surgery is now gone. Vital Signs, Last 4 Hours Temp Pulse Resp BP Pulse Ox 05/06/18 11:29 98.6 F 65 18 145/58 99 - Physical Examination General: Present: Conversant, No Apparent Distress, Well developed HEENT: Present: Atraumatic, Normocephaly Cardiac: Present: Reg Rate and Rhythm, Normal S1 and S2 Lungs: Present: Normal Breath Sounds Neuro: Present: Alert and responsive Vascular: Present: Edema (Mild edema of left foot and ankle), Color/Temperature (Left foot remains warm. He has excellent Doppler signals 3 at the left ankle. ), Surgical incisions (Patient's left lower extremity incisions are intact. He has some oozing from the [id number] popliteal area.) - VTE Documentation of Mechanical Device: Venous foot pump, device Results 05/05/18 16:19 05/05/18 03:30 Lab Results, Last 24 hours 05/05/18 16:19 Hgb 9.2 L D Hct 26.1 L Consult Discharge Plan - Plan Referrals: Ruperto Hdez MD [Primary Care Provider] - (Sent fax to get follow up appointment) Robert Moore MD [Partnered Physician] - 05/19/18 2:45 pm
--- NOTE | 2018-05-06 13:38 | Discharge Summary ---
Date of Encounter: 05/07/18 Time of Encounter: 16:27 - Discharge Diagnosis (1) PAD (peripheral artery disease) Priority: Primary Status: Chronic Comments: Patient has severe left lower extremity tibial artery occlusive disease. He is status post previous interventions at an outside hospital that were unsuccessful. Because of his limb threatening ischemia and persistent pain he was taken to the operating room to create a distal bypass graft. As he had had an abnormal cardiac stress test and had a recent coronary stent angioplasty one month ago the patient required ongoing dual anti-platelet therapy. This was continued pre-and postop without interruption. This led to increased blood loss and oozing. (2) Anemia Priority: Secondary Status: Acute Comments: Acute blood loss anemia associated with dual antiplatelet therapy for coronary artery disease drug-coated stent angioplasty. Qualifiers: Anemia type: other cause Other causes of anemia: other cause, not classified Qualified Code(s): D64.89 - Other specified anemias (3) Presence of stent in coronary artery in patient with coronary artery disease Priority: Secondary Status: Chronic Comments: Patient is status post cardiac catheterization with coronary stent angioplasty approximately one month ago. Patient had abnormal preoperative non-exercise cardiac stress test. (4) Diabetes mellitus, type II, insulin dependent Priority: Secondary Status: Chronic Comments: Patient has long-standing diabetes with circulatory complications affecting both coronary and peripheral vascular vasculature. - Hospital Course Hospital course: Mr. Barroso is a 72 year old male With severe left lower extremity vascular occlusive disease. The patient had undergone previous endovascular intervention at outside hospital. This unfortunately was not durable and one on to fail. He underwent angiography which demonstrated reocclusion of the anterior tibial artery and severe disease with occlusion of the remaining tibial vessels. In order to alleviate the patient's ischemia he would require a femoral to anterior tibial artery bypass graft for limb salvage. On a preoperative nonexercise cardiac stress test was found to be positive. This then led to a cardiac catheterization and stent angioplasty approximately one month ago. He was placed on antiplatelet agents and was on dual therapy because it was a drug-eluting stent. In order to alleviate his ischemia however we needed to proceed with surgery and waited approximately one month but continued his antiplatelet therapy before and after surgery. This led to significant oozing and bleeding as anticipated but ended up requiring transfusions during this hospitalization. The patient had a successful bypass graft though the in situ saphenous vein utilized to create the bypass was small in diameter. Its required extra manipulation and a prolonged and tedious operation in order to complete the bypass graft. Postoperatively the left foot was warm and pink. He had excellent perfusion with multiphasic Doppler signals at all 3 locations at the left ankle. The patient had difficulties resuming significant activity and felt very stiff. He was evaluated by physical and occupational therapy. He agreed that he would benefit from inpatient rehabilitation. We will make arrangements for that upon discharge. Issues were reviewed with the patient's prior to discharge as well. - Time Spent with Patient Total time spent providing and/or coordinating discharge services: - Discharge Medications Prescriptions: HYDROcodone/Acet 5/325 mg [Shedd 5-325 mg] 1 tab PO BID PRN 7 Days #20 tablet PRN Reason: Moderate Pain Home Medications: hydroCHLOROthiazide [Hydrochlorothiazide] 25 mg PO DAILY 01/23/16 [History] Atenolol [Tenormin] 50 mg PO DAILY 03/19/18 [History] Clopidogrel [Plavix] 75 mg PO DAILY 03/19/18 [History] Insulin Degludec [Tresiba Flextouch U-200] 110 unit SQ HS 03/19/18 [History] Atorvastatin Calcium [Lipitor] 20 mg PO DAILY 03/31/18 [History] Aspirin 325 mg PO DAILY 05/04/18 [History] Losartan Potassium [Cozaar] 100 mg PO DAILY 05/04/18 [History] HYDROcodone/Acet 5/325 mg [Shedd 5-325 mg] 1 tab PO BID PRN 7 Days #20 tablet [Rx] Allergies/Adverse Reactions: 3 Allergy/AdvReac Type Severity Reaction Status Date / Time No Known Allergies Allergy Verified 05/04/18 06:59 Date of admission: 05/04/18 15:18 Primary care physician: Ruperto Hdez MD Consults: 05/04/18 16:37 Consult to Critical Care [CONS] Routine Consulting Provider: [facility] Reason for Consult: recent cornonary stent/prolonged procedure/increased blood loss Call Completed: Yes 05/06/18 11:30 Consult to Physical Therapy [CONS] Routine Comment: Evaluate, develop and implement POC Reason for Consult: Joint and muscle stiffness Does patient have active BEDREST order?: No Is patient medically & hemodynamically stable?: Yes Procedure(s) Performed: Left femoral to anterior tibial artery bypass graft with in situ greater saphenous vein Discharging clinician: Robert Moore Anticipated date of discharge: 05/07/18 Exam Vital Signs, Last 4 Hours Temp Pulse Resp BP Pulse Ox 05/06/18 11:29 98.6 F 65 18 145/58 99 General: Present: Conversant, No Apparent Distress Cardiac: Present: Reg Rate and Rhythm Lungs: Present: Normal Breath Sounds Neuro: Present: Alert and responsive, Cranial nerves grossly intact Abdomen: Present: Soft Vascular: Present: Surgical incisions (Patient has lee for the left lower extremity incision. He does have a small amount of oozing on the distal aspect of the incisions.), Other (Patient has Doppler signals 3 at the left ankle.) - Patient Status Disposition: Transfer Hospital Swing Bed Condition: Fair Functional capacity at discharge: uses cane/walker Overall status at discharge: patient is progressing back to baseline - Discharge Instructions Follow Up With: Ruperto Hdez MD [Primary Care Provider] - (Sent fax to get follow up appointment. Received fax back from Dr. Hdez's office and they will be closed May 10 through May 22. Patient will need to call and get his follow up appointment) Robert Moore MD [Partnered Physician] - 05/19/18 2:45 pm Additional Instructions: Change dressings as needed for oozing from the left lower extremity incisions. Elevate left lower extremity while at rest. Ambulate as much as possible. Continue usual home medications. Continue diabetic diet. Use prescription analgesia as prescribed. - Diet and Activity Activity: increase activity as tolerated Diet: advance to your usual diet - VTE Documentation of Mechanical Device: Venous foot pump, device
[2018-05-06] MEDS ORDERED: Insulin LISPRO 300 UNITS/3 ML VIAL SQ SCH (23:30)
[2018-05-07] MEDS: Pantoprazole 40 MG VIAL IVP SCH (04:51)
[2018-05-07] MEDS: *HR* OxyCODONE Immed Rel 5 MG TABLET PO PRN ×2 (04:51→15:41)
[2018-05-07] MEDS: Aspirin 81 MG TAB.CHEW PO SCH (07:50)
[2018-05-07] MEDS: Insulin LISPRO 300 UNITS/3 ML VIAL SQ SCH ×3 (07:50→17:05)
[2018-05-07] MEDS: *HR* HYDROcodone/Acet 5/325 mg TABLET PO PRN (11:59)
[2018-05-07 15:05] VITALS: BP 125/45
--- NOTE | 2018-05-07 16:39 | Physician Discharge Referral ---
ExtendedCare Referral Info Transfer To: Swing Bed Provider in Charge: Dr Moore Provider in Charge after Transfer: PCP Institutional Level of Care: Intermediate - Diagnosis (1) PAD (peripheral artery disease) Priority: Primary Status: Chronic (2) Anemia Priority: Secondary Status: Acute (3) Presence of stent in coronary artery in patient with coronary artery disease Priority: Secondary Status: Chronic (4) Diabetes mellitus, type II, insulin dependent Priority: Secondary Status: Chronic Expected Duration of Placement: 3-7 days Prognosis: Good Aware of Diagnosis: Patient, Family Aware of Prognosis: Patient, Family - Transfer Medications Prescriptions: HYDROcodone/Acet 5/325 mg [[place]ymour 5-325 mg] 1 tab PO BID PRN 7 Days #20 tablet PRN Reason: Moderate Pain Home Medications: hydroCHLOROthiazide [Hydrochlorothiazide] 25 mg PO DAILY 01/23/16 [History] Atenolol [Tenormin] 50 mg PO DAILY 03/19/18 [History] Clopidogrel [Plavix] 75 mg PO DAILY 03/19/18 [History] Insulin Degludec [Tresiba Flextouch U-200] 110 unit SQ HS 03/19/18 [History] Atorvastatin Calcium [Lipitor] 20 mg PO DAILY 03/31/18 [History] Aspirin 325 mg PO DAILY 05/04/18 [History] Losartan Potassium [Cozaar] 100 mg PO DAILY 05/04/18 [History] HYDROcodone/Acet 5/325 mg [[place]ymour 5-325 mg] 1 tab PO BID PRN 7 Days #20 tablet [Rx] Allergies/Adverse Reactions: 3 Allergy/AdvReac Type Severity Reaction Status Date / Time No Known Allergies Allergy Verified 05/04/18 06:59 - Respiratory Orders Smoking Cessation: Smoking cessation has been advised. For more information, call the [place] Tobacco Quit Line at 4-373-BXWC-NOW. - Rehabiliation Orders Rehab Potential: Good Rehab Orders: ROM Exercises, Evaluation for Physical Therapy, Evaluation for Occupational Therapy - Diet Orders Regular CERTIFICATION: I certify that the transfer of the above named patient to an Extended Care Facility is necessary for the continuing treatment of the diagnosis listed. The above information is true and accurate reflection of patient's current condition. Confidential - Redisclosure prohibited without a patient's written consent.
== END 2018-05-07 18:55 | disposition other institution (70) | DRG 252 ==
LOC: SAMDAY 06:13 → ICNU 15:18 → 2NNU 05-06 01:35
PROVIDERS: ADMIT Surgery Vascular Surgery; ATTEND Surgery Vascular Surgery

== ENCOUNTER 2020-03-27 18:35 | Observation (INO) ==
[2020-03-27] MEDS ORDERED: Isovue-370 500 ML BOTTLE IVP ONE (18:46)
[2020-03-27 19:42] LABS: Basophils # 0.1 K/mcL (0.0-0.2); Basophils % 0.5 %; Eosinophils # 0.2 K/mcL (0.0-0.6); Eosinophils % 1.6 %; Hemoglobin 12.5 g/dL (12.9-16.9); Immature Granulocytes % 0.3 % (0-4); Lymphocytes # 1.8 K/mcL (0.6-4.6); Mean Corpuscular HGB Conc 33.8 g/dL (31.6-35.5); Mean Corpuscular Volume 88.7 fL (83.0-100.0); Mean Platelet Volume 11.3 fL (9.4-12.4); Monocytes # 0.8 K/mcL (0.0-1.3); Monocytes % 9.1 %; Neutrophils # 6.4 K/mcL (1.6-8.9); Platelet Count 218 K/mcL (140-400); Red Blood Count 4.17 M/mcL (4.19-5.50); Red Cell Distribution Width 13.2 % (11.5-14.5); Segmented Neutrophils % 69.5 %; White Blood Count 9.3 K/mcL (4.3-11.1)
[2020-03-27 20:02] LABS: BUN/Creatinine Ratio 15 (6-26); Blood Urea Nitrogen 21 mg/dL (8-23); Calcium 8.8 mg/dL (8.6-10.3); Carbon Dioxide 27 mEq/L (23-29); Chloride 104 mEq/L (98-107); Glucose 247 mg/dL (70-105); Osmolality,Calculated 291 (280-300); Potassium 4.2 mEq/L (3.5-5.1); Sodium 135 mEq/L (136-145); Troponin I < 0.03 ng/mL (< 0.04); eGFR For African Americans > 60 (> 60); eGFR For Non-African Americans 51 (> 60)
[2020-03-27] MEDS ORDERED: Nitroglycerin 0.4 MG TAB.SUBL SL PRN (23:11)
[2020-03-27] MEDS ORDERED: *HR* Dextrose 50 % in Water (Syg) 50 ML SYRINGE IVP PRN (23:14)
[2020-03-27] MEDS ORDERED: D5% in Water 1,000 ML IVC PRN (23:14)
[2020-03-27] MEDS ORDERED: Dextrose Gel 15 GM/37.5 ML TUBE PO PRN ×2 (23:14)
[2020-03-27] MEDS: Insulin LISPRO 300 UNITS/3 ML VIAL SQ SCH (23:56)
[2020-03-28] MEDS: Insulin DETEMIR 100 UNIT/ML X5UNITS SQ SCH ×2 (00:32→20:33)
[2020-03-28 02:27] LABS: Basophils % 0.5 %; Eosinophils # 0.2 K/mcL (0.0-0.6); Eosinophils % 2.8 %; Hematocrit 39.7 % (37.5-50.1); Hemoglobin 13.4 g/dL (12.9-16.9); Immature Granulocytes % 0.3 % (0-4); Lymphocytes % 25.7 %; Mean Corpuscular HGB Conc 33.8 g/dL (31.6-35.5); Mean Corpuscular Hemoglobin 30.5 pg (28.0-33.3); Mean Corpuscular Volume 90.2 fL (83.0-100.0); Mean Platelet Volume 11.6 fL (9.4-12.4); Monocytes # 0.8 K/mcL (0.0-1.3); Monocytes % 9.6 %; Neutrophils # 4.8 K/mcL (1.6-8.9); Platelet Count 208 K/mcL (140-400); Red Cell Distribution Width 13.1 % (11.5-14.5); Segmented Neutrophils % 61.1 %; White Blood Count 7.8 K/mcL (4.3-11.1)
[2020-03-28 02:47] LABS: BUN/Creatinine Ratio 17 (6-26); Blood Urea Nitrogen 20 mg/dL (8-23); Carbon Dioxide 25 mEq/L (23-29); Chloride 103 mEq/L (98-107); Glucose 244 mg/dL (70-105); Osmolality,Calculated 291 (280-300); Potassium 4.4 mEq/L (3.5-5.1); Sodium 135 mEq/L (136-145); eGFR For African Americans > 60 (> 60); eGFR For Non-African Americans > 60 (> 60)
[2020-03-28] MEDS: *HR* Heparin 5,000 UNIT/ML VIAL SQ SCH ×2 (04:05→17:01)
[2020-03-28] MEDS: Insulin LISPRO 300 UNITS/3 ML VIAL SQ SCH ×3 (09:05→17:01)
[2020-03-28] MEDS ORDERED: Isosorbide MONOnitrate (24 HR) 30 MG TAB.ER.24H PO SCH (11:30)
[2020-03-28] MEDS ORDERED: Metoprolol XL (24 HR) Succ 50 MG TAB.ER.24H PO SCH (12:45)
[2020-03-28] MEDS: carvediloL 6.25 MG TABLET PO SCH (17:01)
[2020-03-28] MEDS: amLODIPine 5 MG TABLET PO SCH (20:33)
[2020-03-28] MEDS ORDERED: hydrALAZINE 25 MG TABLET PO PRN ×2 (21:50→21:54)
[2020-03-29] MEDS ORDERED: Regadenoson 0.4 MG/5 ML SYRINGE IVP ONE (05:59)
[2020-03-29] MEDS: *HR* Heparin 5,000 UNIT/ML VIAL SQ SCH (06:05)
[2020-03-29 06:42] LABS: BUN/Creatinine Ratio 13 (6-26); Blood Urea Nitrogen 18 mg/dL (8-23); Calcium 9.1 mg/dL (8.6-10.3); Carbon Dioxide 27 mEq/L (23-29); Chloride 101 mEq/L (98-107); Glucose 206 mg/dL (70-105); Osmolality,Calculated 286 (280-300); Potassium 4.2 mEq/L (3.5-5.1); Sodium 134 mEq/L (136-145); eGFR For African Americans > 60 (> 60); eGFR For Non-African Americans 51 (> 60)
[2020-03-29] MEDS: amLODIPine 5 MG TABLET PO SCH (08:56)
[2020-03-29] MEDS: carvediloL 6.25 MG TABLET PO SCH (08:56)
[2020-03-29] MEDS: Insulin LISPRO 300 UNITS/3 ML VIAL SQ SCH ×2 (08:59→11:57)
[2020-03-29] MEDS ORDERED: Aspirin 81 MG TAB.CHEW PO SCH (09:00)
[2020-03-29 10:26] VITALS: BP 125/65
[2020-03-29] MEDS ORDERED: Isosorbide MONOnitrate (24 HR) 30 MG TAB.ER.24H PO SCH (12:00)
== END 2020-03-29 15:24 | disposition home or self-care (01) ==
LOC: EMEROOARM 18:35 → 3BNU 18:35 → SUATTDRO 22:10 → 3BNU 23:00
PROVIDERS: ADMIT Internal Medicine; ATTEND Student in an Organized Health Care Education/Training Program